=== PATIENT | male | born 1960 | race Caucasian/White ===

== ENCOUNTER → 2024-01-04 | Outpatient (CLI) | payer BC ==
--- NOTE | 2024-01-04 22:09 | CT ---
EXAMINATION TYPE: CT urogram wo/w con CT DLP: 4523 mGycm, Automated exposure control for dose reduction was used. DATE OF EXAM: 01/04/2024 12:19 PM COMPARISON: None CLINICAL INDICATION:Male, 63 years old with history of R31.9 HEMATURIA; PHH, HEMATURIA, HX OF HERNIA, CHOLECYSTECTOMY TECHNIQUE: Urogram of the abdomen and pelvis was performed before and after the administration of 100 cc of IV c ontrast Isovue 300 contrast. Delayed imaging was performed. Coronal and sagittal reformats were perfo rmed. One or more CT dose reduction strategies were utilized during this examination. FINDINGS: GENITOURINARY: RIGHT KIDNEY AND URETER: Mid kidney nonobstructive 3 mm calculus. No lower pole nonobstructive puncta te 1 mm calculus. No hydronephrosis or hydroureter. Posterior upper pole exophytic 5 cm nonenhancing simple cysts. Additional tiny 3 mm medial right upper pole cysts. No urothelial lesions: no filling d efect, dilation, stricture or wall thickening. LEFT KIDNEY AND URETER: Superior pole nonobstructive 3 mm calculus. No hydronephrosis or hydroureter. No renal mass or other lesions. No urothelial lesions: no filling defect, dilation, stricture or wal l thickening. URINARY BLADDER: Mildly well distended. Normal, no calculi, mass or other lesions. REPRODUCTIVE: Tiny central prostate calcification. Not enlarged. ABDOMEN LIVER: Unremarkable. GALLBLADDER AND BILE DUCTS: Gallbladder is surgically absent. No biliary duct dilatation. PANCREAS: Unremarkable. SPLEEN: Unremarkable. ADRENAL GLANDS: Unremarkable. STOMACH AND BOWEL: Distal colonic diverticulosis with stranding inflammatory changes to suggest acute diverticulitis. The appendix is within normal limits. No evidence of bowel obstruction. PERITONEUM: No evidence of pneumoperitoneum, free fluid, or adenopathy. VASCULATURE: No aortic aneurysm. Few pelvic phleboliths. MUSCULOSKELETAL: No acute osseous abnormalities. Grade 1 anterolisthesis of L4 on L5 without evidence of pars defects. Mild retrolisthesis of L3 on L4. SOFT TISSUE/ABDOMINAL WALL: Small fat filled umbilical hernia. Patulous left inguinal ring. LOWER CHEST: No significant findings. IMPRESSION: 1. No evidence of enhancing suspicious renal/urothelial neoplasm. 2. Nonobstructive bilateral renal calculi. 3. Right renal nonenhancing simple cysts. 4. Colonic diverticulosis. [facility], , 01/04/2024 10:06 PM
== END | disposition home or self-care (01) ==
LOC: RADCTMAIN 10:49
PROVIDERS: ATTEND Internal Medicine
DX: R31.9 Hematuria, unspecified
CPT/HCPCS: 74178; 74400